=== PATIENT | female | born 1965 | race Caucasian/White ===

== ENCOUNTER 2017-03-24 10:22 | Inpatient (IN) | payer OTHER ==
[~2017-03-24] VITALS: Ht 180.3 cm; Wt 96.2 kg
[2017-03-24 11:28] LABS: BASOPHIL % 0.4 % (0-2); PLATELET COUNT 209 x10^3mcL (130-400); RED CELL DISTRIBUTION WIDTH 13.8 % (11.5-14.5)
[2017-03-24 12:25] LABS: ALKALINE PHOSPHATASE 87 U/L (46-116); ALT/SGPT 28 U/L (14-59); AST/SGOT 22 U/L (15-37); BILIRUBIN TOTAL 0.3 mg/dL (0.20-1.00); CARBON DIOXIDE 25.4 mmol/L (21-32); CHLORIDE SERUM 108 mmol/L (98-107); CREATININE SERUM 1.6 mg/dL (0.6-1.0); GFR1 36 mL/min; GLUCOSE SERUM 150 mg/dL (74-106); MAGNESIUM 2.1 mg/dL (1.8-2.4); POTASSIUM SERUM 5.5 mmol/L (3.5-5.1); SODIUM SERUM 142 mmol/L (136-145); TOTAL PROTEIN, SERUM 6.8 g/dL (6.4-8.2)
[2017-03-24 12:26] LABS: ALBUMIN 3.2 g/dL (3.4-5.0)
[2017-03-24] MEDS ORDERED: ASPIRIN ADULT L81 M3 PO (13:11)
[2017-03-24] MEDS ORDERED: BENAZEPRIL HYDR20 M1 PO (13:11)
[2017-03-24] MEDS ORDERED: GLUCOTROL5 MG PO (13:11)
[2017-03-24] MEDS ORDERED: LIPI20 PO (13:12)
[2017-03-24] MEDS ORDERED: FERROUS SULFAT325 M2 PO (13:12)
[2017-03-24] MEDS ORDERED: CETIRIZINE HYDR10 MG PO (13:12)
[2017-03-24] MEDS ORDERED: VITAMIN D32000 I2 PO (13:12)
[2017-03-24 14:11] VITALS: BP 176/55
[2017-03-24 15:10] LABS: T3 TOTAL 1.42 ng/mL
[2017-03-24 15:25] VITALS: BP 171/52
[2017-03-24 15:44] LABS: CHOLESTEROL/HDL RATIO 3.4
[2017-03-24 15:48] LABS: FREE T4 0.97 ng/dL (0.76-1.46); FREE THYROXINE INDEX 2.3 ug/dL (1.4-4.5); T4(THYROXINE) 7.3 ug/dL (4.7-13.3)
[2017-03-24 16:35] LABS: UA SPECIFIC GRAVITY 1.015 (1.005-1.035); microscopic required? YES; urine erythrocyte 2+ (NEGATIVE)
[2017-03-24 16:46] LABS: AMPHETAMINE QUAL UR NONE DETECTED (NEG <=1000)
[2017-03-24 17:15] VITALS: BP 167/53
[2017-03-24 17:26] LABS: CALCIUM 8.5 mg/dL (8.5-10.1); CARBON DIOXIDE 26.2 mmol/L (21-32); CREATININE SERUM 1.5 mg/dL (0.6-1.0); POTASSIUM SERUM 4.9 mmol/L (3.5-5.1)
[2017-03-24 22:28] VITALS: BP 133/42
[2017-03-25 06:28] LABS: CALCIUM 8.3 mg/dL (8.5-10.1); CARBON DIOXIDE 25.5 mmol/L (21-32); CREATININE SERUM 1.5 mg/dL (0.6-1.0); MAGNESIUM 1.7 mg/dL (1.8-2.4); PHOSPHOROUS 3.9 mg/dL (2.5-4.9); POTASSIUM SERUM 4.4 mmol/L (3.5-5.1)
[2017-03-25 06:29] VITALS: BP 121/43
[2017-03-25 06:38] LABS: IRON 30 ug/dL (50-170); TOTAL IRON BINDING CAPACITY 240 ug/dL (250-450)
[2017-03-25 07:18] LABS: BASOPHIL % 0.5 % (0-2); PLATELET COUNT 207 x10^3mcL (130-400); RED BLOOD CELLS 3.71 M/mm3 (4.10-5.10)
[2017-03-25 09:22] VITALS: BP 139/52
[2017-03-25 12:08] VITALS: BP 175/66
[2017-03-25 18:28] VITALS: BP 166/61
[2017-03-25 22:00] VITALS: BP 153/69
[2017-03-26 06:00] VITALS: BP 135/46
[2017-03-26 06:36] LABS: CALCIUM 8.5 mg/dL (8.5-10.1); CARBON DIOXIDE 26.6 mmol/L (21-32); CREATININE SERUM 1.5 mg/dL (0.6-1.0); MAGNESIUM 1.9 mg/dL (1.8-2.4); PHOSPHOROUS 3.7 mg/dL (2.5-4.9); POTASSIUM SERUM 4.5 mmol/L (3.5-5.1)
[2017-03-26 07:15] LABS: BASOPHIL % 0.4 % (0-2); PLATELET COUNT 191 x10^3mcL (130-400); RED CELL DISTRIBUTION WIDTH 14.1 % (11.5-14.5)
[2017-03-26 11:27] VITALS: BP 173/64
[2017-03-26 14:30] VITALS: BP 120/25
[2017-03-26 15:00] VITALS: BP 160/50
[2017-03-26 15:30] VITALS: BP 154/64
[2017-03-26] MEDS ORDERED: SYN25 PO (15:42)
[2017-03-26 16:17] VITALS: BP 154/64
== END 2017-03-26 16:30 | disposition home or self-care (01) | DRG 48 ==
LOC: ED 10:22 → DU 12:45
PROVIDERS: Emergency Medicine; ADMIT Family Medicine
DX: G90.8 Other disorders of autonomic nervous system (principal); N17.0 Acute kidney failure with tubular necrosis; E44.0 Moderate protein-calorie malnutrition; E87.8 Other disorders of electrolyte and fluid balance, not elsewhere classified; D68.69 Other thrombophilia; E11.65 Type 2 diabetes mellitus with hyperglycemia; R00.1 Bradycardia, unspecified; D64.9 Anemia, unspecified; E87.5 Hyperkalemia; E78.5 Hyperlipidemia, unspecified; E02 Subclinical iodine-deficiency hypothyroidism; I12.9 Hypertensive chronic kidney disease with stage 1 through stage 4 chronic kidney disease, or unspecified chronic kidney disease; N18.9 Chronic kidney disease, unspecified; Z79.82 Long term (current) use of aspirin; Z79.84 Long term (current) use of oral hypoglycemic drugs; Z86.73 Personal history of transient ischemic attack (TIA), and cerebral infarction without residual deficits
CPT/HCPCS: 82962; 83880; 84439; 97110-GP; 97530-GP; G0480; J0360; J1815; J3490; J7030; Q0092